=== PATIENT | female | born 1985 | race Caucasian/White ===

== ENCOUNTER 2021-12-19 16:25 | Emergency (ER) | payer OTHER ==
[~2021-12-19 16:25] MED LIST: CLEOCIN300 MG PO; NAPROSYN375 MG PO; PREDNISONE 20MG20 MG PO; SUDAFED30 MG PO; ZYRTEC10 MG PO
[2021-12-19 17:42] LABS: BASOPHIL 0.2 % (0-2); EOSINOPHIL 0.2 % (0-5); HCT 41.2 % (37.0-47.0); HGB 14.2 g/dl (12.5-16.0); LYMPHOCYTE 14.8 % (15-48); MCH 30.5 pg (25.0-31.0); MCHC 34.5 g/dL (32.0-36.0); MCV 88.6 fL (78.0-100.0); MPV 9.1 fL (6.0-9.5); NEUTROPHIL 76.4 % (41-80); NRBC 0; PLT 517 K/uL (150-400); RBC 4.65 M/uL (4.20-5.40); RDW 13.3 % (11.5-14.0); WBC 15.6 K/uL (4.0-10.5)
[2021-12-19 18:12] LABS: BUN 5 mg/dL (7-18); BUN/CREAT RATIO (CALC) 9.1 RATIO; CHLORIDE 100 mmol/L (98-107); CO2 (BICARBONATE) 25 mmol/L (21-32); CREATININE 0.55 mg/dL (0.51-0.95); GLUCOSE 104 mg/dL (74-106); POTASSIUM 3.5 mmol/L (3.5-5.1)
[2021-12-19 18:19] LABS: CORONAVIRUS 2019 SARS-COV-2 NEGATIVE (NEGATIVE); INFLUENZA A NAA NEGATIVE (NEGATIVE)
[2021-12-19 18:29] LABS: LACTIC ACID 0.6 mmol/L (0.4-1.9)
[2021-12-19 18:34] LABS: BILIRUBIN NEGATIVE (NEGATIVE); BLOOD NEGATIVE Ery/uL (NEGATIVE); CLARITY CLEAR (CLEAR); COLOR YELLOW (YELLOW); GLUCOSE (U) NORMAL (NORMAL); LEUKOCYTES 1+ Leu/uL (NEGATIVE); NITRITE POSITIVE (NEGATIVE); PROTEIN NEGATIVE (NEGATIVE); SPECIFIC GRAVITY 1.015 (1.001-1.030); UROBILINOGEN 0.2 mg/dL (0.2-1.0); pH 8.5 (5.0-9.0)
[2021-12-19 18:37] LABS: BARBITURATES NEGATIVE (NEGATIVE); ECSTASY (MDMA) NEGATIVE (NEGATIVE); MARIJUANA (THC) POSITIVE (NEGATIVE); METHADONE NEGATIVE (NEGATIVE); OPIATES NEGATIVE (NEGATIVE)
[2021-12-19 18:38] LABS: AMPHETAMINES POSITIVE (NEGATIVE); OXYCODONE NEGATIVE (NEGATIVE)
[2021-12-19 18:41] LABS: BACTERIA 3+
[2021-12-19] MEDS ORDERED: BACTRIM DS TAB1 EACH PO (18:54)
[2021-12-22 22:09] LABS: CHLAMYDIA TRACHOMATIS, NAA Negative (Negative); NEISSERIA GONORRHOEAE, NAA Negative (Negative)
== END 2021-12-19 19:28 | disposition home or self-care (01) ==
LOC: FER 16:25
PROVIDERS: Nurse Practitioner Family
DX: R07.89 Other chest pain (principal); N39.0 Urinary tract infection, site not specified; F15.90 Other stimulant use, unspecified, uncomplicated; F12.90 Cannabis use, unspecified, uncomplicated; F17.210 Nicotine dependence, cigarettes, uncomplicated; Z91.040 Latex allergy status; Z20.822 Contact with and (suspected) exposure to COVID-19; Z28.310 Unvaccinated for COVID-19
CPT/HCPCS: 36415; 71045; 80048; 80305; 81001; 83605; 84145; 84484; 85025; 85379; 87040; 87076; 87088; 87186; 87491; 87591; 93005; U0002